=== PATIENT | male | born 1970 | race Caucasian/White ===

== ENCOUNTER 2017-04-06 16:42 | Emergency (ER) | payer MEDICAID ==
[~2017-04-06] VITALS: Ht 170.2 cm; Wt 74.8 kg
[2017-04-06] MEDS ORDERED: KETOROLAC TROMETH 60MG/2ML VIAL IM ONE (20:15)
[2017-04-06] MEDS ORDERED: SODIUM CHLORIDE 0.9% 2,000 ML IV ONE (21:20)
[2017-04-06] MEDS ORDERED: HYDROmorphone HCL 2 MG/ML VL IV ONE (21:30)
[2017-04-06] MEDS ORDERED: ONDANSETRON HCL 4 MG/2 ML VIAL IV ONE (21:30)
[2017-04-06] MEDS ORDERED: HYDROcodone-ACET 10/325MG TAB PO ONE (21:30)
[2017-04-06 22:35] LABS: Basophils # (auto) 0 uL; Basophils % (auto) 0.3 % (0.0-2.0); Eosinophils # (auto) 0 uL; Eosinophils % (auto) 0.2 % (0.0-7.0); Hematocrit 44.3 % (41.0-53.0); Hemoglobin 14.9 g/dL (13.5-17.5); Lymphocytes # (auto) 0.7 uL; Lymphocytes % (auto) 4.9 % (10.0-50.0); Mean Corpuscular Hgb Conc. 33.6 g/dL (32.0-36.0); Mean Corpuscular Volume 89.4 fL (80.0-100.0); Neutrophils # (auto) 13.1 uL; Neutrophils % (auto) 87.6 % (37.0-80.0); Platelet Count (auto) 279 10^3/uL (140-450); Red Cell Distribution Width 13.8 % (11.8-14.3); White Blood Cell 14.9 10^3/uL (4.4-10.8)
[2017-04-06 22:48] LABS: INR 1.03 (0.9-1.15); Partial Thromboplastin Time 24.8 sec (22.64-33.71); Prothrombin Time 11.2 sec (9.37-12.3)
[2017-04-06 22:50] LABS: Albumin 3.5 g/dL (3.4-5.0); BUN/Creatinine Ratio 23.3; Potassium 3.7 mmol/L (3.5-5.1)
[2017-04-06 22:51] LABS: Bilirubin, Total 0.6 mg/dL (0.2-1.0); Total Protein 6.9 g/dL (6.4-8.2)
[2017-04-06 23:26] VITALS: BP 118/76
== END 2017-04-06 23:45 | disposition short-term general hospital (02) ==
LOC: EDUNIT# 16:42 → EDBD 16:42 → ER 16:42
DX: S12.500A Unspecified displaced fracture of sixth cervical vertebra, initial encounter for closed fracture (principal); S12.600A Unspecified displaced fracture of seventh cervical vertebra, initial encounter for closed fracture; S32.019A Unspecified fracture of first lumbar vertebra, initial encounter for closed fracture; F17.210 Nicotine dependence, cigarettes, uncomplicated; Z88.0 Allergy status to penicillin; Y04.0XXA Assault by unarmed brawl or fight, initial encounter; Y93.89 Activity, other specified; Y92.89 Other specified places as the place of occurrence of the external cause; Y99.8 Other external cause status
CPT/HCPCS: 36415; 71010; 72125; 80053; 85025; 85610; 85730; 96361; 96372; 96374; 96375; 99285; J1170; J1885; J2405